=== PATIENT | male | born 1980 | race African-American/Black ===

== ENCOUNTER 2017-10-14 17:38 | Emergency (ER) | payer SELFPAY ==
[~2017-10-14] VITALS: Ht 184.2 cm; Wt 76.4 kg
[2017-10-14] MEDS ORDERED: CLON.3 PO (18:02)
[2017-10-14] MEDS ORDERED: OMEP20 PO (18:02)
[2017-10-14] MEDS: IBUPROFEN 800 MG TABLET PO ONE ×2 (19:14→19:19)
[2017-10-14 19:55] VITALS: BP 130/88
== END 2017-10-14 20:03 | disposition home or self-care (01) ==
LOC: EMS 17:40
DX: S60.012A Contusion of left thumb without damage to nail, initial encounter (principal); B35.1 Tinea unguium; I10 Essential (primary) hypertension; F17.210 Nicotine dependence, cigarettes, uncomplicated; W21.05XA Struck by basketball, initial encounter; Y93.89 Activity, other specified; Y92.89 Other specified places as the place of occurrence of the external cause; Y99.8 Other external cause status
CPT/HCPCS: 99284

== ENCOUNTER 2020-10-30 00:06 | Inpatient (IN) | payer MEDICAID ==
[~2020-10-30] VITALS: Ht 182.9 cm; Wt 64.6 kg
[~2020-10-30 00:06] MED LIST: CLON0.3T PO; OMEP20 PO
[2020-10-30 01:38] LABS: BASOPHILS % (AUTO) 0.8 % (0.0-2.0); HEMATOCRIT 45.8 % (41-53); HEMOGLOBIN 15.2 g/dL (13.5-17.5); LYMPHOCYTES # (AUTO) 1.8 K/uL (1.0-4.8); LYMPHOCYTES % (AUTO) 19.9 % (22.0-44.0); MEAN CORPUSCULAR HGB CONC 33.2 G/dL (31.0-37.0); MEAN CORPUSCULAR VOLUME 90 fL (80-100); MONOCYTES # (AUTO) 0.6 K/uL (0.1-1.0); MONOCYTES % (AUTO) 6.7 % (2.0-9.0); NEUTROPHILS # (AUTO) 6.3 K/uL (1.8-7.7); NEUTROPHILS % (AUTO) 71.6 % (40.0-70.0); PLATELET COUNT (AUTO) 285 K/uL (150-450); RED BLOOD CELL COUNT(AUTO) 5.06 MIL/uL (4.50-5.90); RED CELL DISTRIBUTION WIDTH 13.1 % (11.5-14.5)
[2020-10-30 01:48] LABS: ANION GAP 6 mmol/L (8-16); CALCIUM, TOTAL 8.9 mg/dL (8.8-10.5); CARBON DIOXIDE 32 mmol/L (22-29); CHLORIDE 103 mmol/L (98-107); CREATININE 1.03 mg/dL (0.60-1.30); GLOMERULAR FILTR. RATE CALC > 60 mL/min (>60); GLUCOSE,RANDOM 87 mg/dL (70-110); POTASSIUM 4.1 mmol/L (3.5-5.1); SODIUM SERUM 141 mmol/L (136-145); UREA NITROGEN, BLOOD 15 mg/dL (7-18)
[2020-10-30 01:54] LABS: ALANINE AMINOTRANSFERASE 34 U/L (12-78); ALBUMIN 4.1 g/dL (3.4-5.0); ALKALINE PHOSPHATASE 143 U/L (46-116); ASPARTATE AMINOTRANSFERASE 21 U/L (15-37); BILIRUBIN,TOTAL 0.2 mg/dL (0.1-1.0); TOTAL PROTEIN, SERUM 7.8 g/dL (6.4-8.2)
[2020-10-30] MEDS ORDERED: ZOLPIDEM TARTRATE 10 MG TABLET PO PRN (03:00)
[2020-10-30] MEDS ORDERED: LORazepam 2 MG TABLET PO PRN (03:00)
[2020-10-30] MEDS ORDERED: QUEtiapine FUMARATE 100 MG TABLET PO PRN (03:00)
[2020-10-30 03:05] LABS: COVID AG,FIA SOURCE NASOPHARYNGEAL
[2020-10-30 03:19] LABS: APPEARANCE,URINE CLEAR (CLEAR); BILIRUBIN,URINE NEGATIVE (NEGATIVE); GLUCOSE, URINE (UA) NEGATIVE (NEGATIVE); KETONES,URINE NEGATIVE (NEGATIVE); LEUKOCYTE ESTERASE ,URINE NEGATIVE (NEGATIVE); NITRATE,URINE NEGATIVE (NEGATIVE); OCCULT BLOOD,URINE NEGATIVE (NEGATIVE); PH,URINE 5.5 (5.0-8.0); PROTEIN,URINE NEGATIVE (NEGATIVE); UROBILINOGEN,URINE 0.2 mg/dL (<=1.0)
[2020-10-30 03:32] LABS: AMPHET/METH SCREEN,URINE NEGATIVE (NEGATIVE); BARBITURATE SCREEN, URINE NEGATIVE (NEGATIVE); BENZODIAZEPINES SCREEN,URINE NEGATIVE (NEGATIVE); CANNABINOID SCREEN,URINE POSITIVE (NEGATIVE); COCAINE SCREEN,URINE POSITIVE (NEGATIVE); METHADONE SCREEN, URINE NEGATIVE (NEGATIVE); OPIATE SCREEN,URINE NEGATIVE (NEGATIVE)
[2020-10-30 03:46] LABS: PHENCYCLIDINE SCREEN,URINE NEGATIVE (NEGATIVE)
[2020-10-30] MEDS ORDERED: ACETAMINOPHEN 325 MG TABLET PO PRN (08:45)
[2020-10-30] MEDS ORDERED: LOPERAMIDE HCL 2 MG CAPSULE PO PRN (08:45)
[2020-10-30] MEDS ORDERED: ALBUTEROL SULFATE HFA 90 MCG/PUFF 8 GM INHALER IH PRN (08:45)
[2020-10-30] MEDS ORDERED: DOCUSATE SODIUM 100 MG CAPSULE PO PRN (08:45)
[2020-10-30] MEDS ORDERED: IBUPROFEN 400 MG TABLET PO PRN (08:45)
[2020-10-30] MEDS ORDERED: ONDANSETRON HCL 4 MG TABLET PO PRN (08:45)
[2020-10-30] MEDS ORDERED: GuaiFENesin/D-METHORPHAN [SUGAR-FREE] 200-20MG/10 ML SYRUP UDCUP PO PRN (08:45)
[2020-10-30] MEDS ORDERED: CloNIDine HCL 0.1 MG TABLET PO PRN (08:45)
[2020-10-30] MEDS ORDERED: PETROLATUM,WHITE 28 GM JELLY TP PRN (08:45)
[2020-10-30] MEDS ORDERED: MAGNESIUM HYDROXIDE SUSPENSION 30 ML UDCUP PO PRN (08:45)
[2020-10-30] MEDS ORDERED: MAG HYDROX/AL HYDROX/SIMETH ES 30 ML SUSPENSION UDCUP PO PRN (08:45)
[2020-10-30] MEDS: OMEPRAZOLE 20 MG CAPSULE PO SCH (09:49)
[2020-10-30 09:54] VITALS: BP 155/108
[2020-10-30] MEDS: AmLODIPine BESYLATE 5 MG TABLET PO SCH (10:30)
[2020-10-30 17:19] VITALS: BP 124/81
[2020-10-30] MEDS: NICOTINE 14 MG/24 HOUR PATCH TD PRN (17:40)
[2020-10-30] MEDS: QUEtiapine FUMARATE 100 MG TABLET PO SCH (20:32)
[2020-10-31 07:08] LABS: CHOL/HDL RATIO 2.1 (4.2-7.3)
[2020-10-31 08:00] VITALS: BP 132/88
[2020-10-31] MEDS: AmLODIPine BESYLATE 5 MG TABLET PO SCH (08:16)
[2020-10-31] MEDS: OMEPRAZOLE 20 MG CAPSULE PO SCH (08:19)
[2020-10-31 16:13] VITALS: BP 103/69
[2020-10-31] MEDS: NICOTINE 14 MG/24 HOUR PATCH TD PRN (18:57)
[2020-10-31] MEDS: QUEtiapine FUMARATE 100 MG TABLET PO SCH (21:01)
[2020-11-01] MEDS: AmLODIPine BESYLATE 5 MG TABLET PO SCH (08:13)
[2020-11-01] MEDS: OMEPRAZOLE 20 MG CAPSULE PO SCH (08:13)
[2020-11-01] MEDS: NICOTINE 14 MG/24 HOUR PATCH TD PRN (08:19)
[2020-11-01 08:22] VITALS: BP 128/92
[2020-11-01] MEDS ORDERED: QUET100T33 PO (11:52)
[2020-11-01] MEDS ORDERED: AMLO-257 PO (13:20)
== END 2020-11-01 16:45 | disposition home or self-care (01) | DRG 750 ==
LOC: EMS 00:13 → 3EI 02:46
DX: F20.0 Paranoid schizophrenia (principal); R45.851 Suicidal ideations; R45.850 Homicidal ideations; I10 Essential (primary) hypertension; K21.9 Gastro-esophageal reflux disease without esophagitis; Z20.822 Contact with and (suspected) exposure to COVID-19; F14.10 Cocaine abuse, uncomplicated; F12.10 Cannabis abuse, uncomplicated; Z79.899 Other long term (current) drug therapy; Z87.891 Personal history of nicotine dependence
CPT/HCPCS: 80053; 80061; 81003; 85025; 99285; G0480

== ENCOUNTER 2021-01-13 12:12 | Emergency (ER) | payer MEDICAID ==
[~2021-01-13] VITALS: Ht 185.4 cm; Wt 63.0 kg
[~2021-01-13 12:12] MED LIST changes: +AMLO-257 PO; +QUET100T34 PO
[2021-01-13 13:56] LABS: APPEARANCE,URINE CLEAR (CLEAR); BILIRUBIN,URINE NEGATIVE (NEGATIVE); GLUCOSE, URINE (UA) >=1000 mg/dL (NEGATIVE); KETONES,URINE NEGATIVE (NEGATIVE); LEUKOCYTE ESTERASE ,URINE NEGATIVE (NEGATIVE); NITRATE,URINE NEGATIVE (NEGATIVE); OCCULT BLOOD,URINE NEGATIVE (NEGATIVE); PH,URINE 5.5 (5.0-8.0); PROTEIN,URINE NEGATIVE (NEGATIVE); UROBILINOGEN,URINE 0.2 mg/dL (<=1.0)
[2021-01-13 14:02] LABS: AMPHET/METH SCREEN,URINE NEGATIVE (NEGATIVE); BARBITURATE SCREEN, URINE NEGATIVE (NEGATIVE); BENZODIAZEPINES SCREEN,URINE NEGATIVE (NEGATIVE); CANNABINOID SCREEN,URINE POSITIVE (NEGATIVE); COCAINE SCREEN,URINE NEGATIVE (NEGATIVE); METHADONE SCREEN, URINE NEGATIVE (NEGATIVE); OPIATE SCREEN,URINE NEGATIVE (NEGATIVE)
[2021-01-13 14:05] LABS: PHENCYCLIDINE SCREEN,URINE NEGATIVE (NEGATIVE)
[2021-01-13 14:13] LABS: BASOPHILS % (AUTO) 0.4 % (0.0-2.0); EOSINOPHILS % (AUTO) 0.1 % (1.0-6.0); HEMATOCRIT 45.9 % (41-53); HEMOGLOBIN 15.3 g/dL (13.5-17.5); LYMPHOCYTES % (AUTO) 7.9 % (22.0-44.0); MEAN CORPUSCULAR HEMOGLOBIN 29.9 pg (26.0-34.0); MEAN CORPUSCULAR HGB CONC 33.2 G/dL (31.0-37.0); MEAN CORPUSCULAR VOLUME 90 fL (80-100); MONOCYTES # (AUTO) 0.6 K/uL (0.1-1.0); MONOCYTES % (AUTO) 4.8 % (2.0-9.0); NEUTROPHILS # (AUTO) 10.5 K/uL (1.8-7.7); PLATELET COUNT (AUTO) 294 K/uL (150-450); RED CELL DISTRIBUTION WIDTH 13.1 % (11.5-14.5)
[2021-01-13 14:16] LABS: NEUTROPHILS % (AUTO) 86.8 % (40.0-70.0)
[2021-01-13 14:27] LABS: ANION GAP 10 mmol/L (8-16); CALCIUM, TOTAL 9.3 mg/dL (8.8-10.5); CARBON DIOXIDE 29 mmol/L (22-29); CHLORIDE 100 mmol/L (98-107); CREATININE 0.92 mg/dL (0.60-1.30); GLOMERULAR FILTR. RATE CALC > 60 mL/min (>60); GLUCOSE,RANDOM 102 mg/dL (70-110); POTASSIUM 3.7 mmol/L (3.5-5.1); SODIUM SERUM 139 mmol/L (136-145); UREA NITROGEN, BLOOD 11 mg/dL (7-18)
[2021-01-13 14:29] LABS: BACTERIA,URINE None Seen /HPF (None Seen); RBC,URINE None Seen /HPF (0-2)
[2021-01-13 14:30] LABS: WBC,URINE 0-2 /HPF (0-5)
[2021-01-13 14:33] LABS: ALANINE AMINOTRANSFERASE 40 U/L (12-78); ALBUMIN 4.3 g/dL (3.4-5.0); ALKALINE PHOSPHATASE 109 U/L (46-116); ASPARTATE AMINOTRANSFERASE 29 U/L (15-37); BILIRUBIN,TOTAL 0.4 mg/dL (0.1-1.0); TOTAL PROTEIN, SERUM 8.4 g/dL (6.4-8.2)
[2021-01-13] MEDS ORDERED: LORazepam 1 MG TABLET PO ONE (15:00)
[2021-01-13] MEDS ORDERED: ONDANSETRON HCL 4 MG TABLET PO ONE (15:00)
[2021-01-13 15:37] VITALS: BP 137/88
== END 2021-01-13 15:57 | disposition home or self-care (01) ==
LOC: EMS 12:14
DX: F11.23 Opioid dependence with withdrawal (principal); F17.210 Nicotine dependence, cigarettes, uncomplicated; I10 Essential (primary) hypertension; Z79.899 Other long term (current) drug therapy
CPT/HCPCS: 36415; 80053; 80307; 81001; 81003; 85025; 99283; G0480; Q0162; 99284

== ENCOUNTER 2022-06-05 23:28 | Emergency (ER) | payer MEDICAID ==
[~2022-06-05] VITALS: Ht 185.4 cm; Wt 72.7 kg
[2022-06-06 00:09] LABS: BASOPHILS % (AUTO) 0.4 % (0.0-2.0); EOSINOPHILS % (AUTO) 0.3 % (1.0-6.0); HEMATOCRIT 46.4 % (41-53); HEMOGLOBIN 15.7 g/dL (13.5-17.5); LYMPHOCYTES % (AUTO) 21.6 % (22.0-44.0); MEAN CORPUSCULAR HEMOGLOBIN 30.3 pg (26.0-34.0); MEAN CORPUSCULAR HGB CONC 33.8 G/dL (31.0-37.0); MEAN CORPUSCULAR VOLUME 90 fL (80-100); MONOCYTES # (AUTO) 0.4 K/uL (0.1-1.0); MONOCYTES % (AUTO) 4.1 % (2.0-9.0); NEUTROPHILS # (AUTO) 6.9 K/uL (1.8-7.7); NEUTROPHILS % (AUTO) 73.6 % (40.0-70.0); PLATELET COUNT (AUTO) 281 K/uL (150-450); RED BLOOD CELL COUNT(AUTO) 5.18 MIL/uL (4.50-5.90); RED CELL DISTRIBUTION WIDTH 13.1 % (11.5-14.5)
[2022-06-06 00:22] LABS: ANION GAP 5 mmol/L (8-16); CALCIUM, TOTAL 9.1 mg/dL (8.8-10.5); CARBON DIOXIDE 32 mmol/L (22-29); CHLORIDE 103 mmol/L (98-107); CREATININE 1.13 mg/dL (0.60-1.30); GLOMERULAR FILTR. RATE CALC > 60 mL/min (>60); GLUCOSE,RANDOM 104 mg/dL (70-110); POTASSIUM 4.3 mmol/L (3.5-5.1); SODIUM SERUM 140 mmol/L (136-145); UREA NITROGEN, BLOOD 12 mg/dL (7-18)
[2022-06-06 00:27] LABS: ALANINE AMINOTRANSFERASE 23 U/L (12-78); ALBUMIN 4.4 g/dL (3.4-5.0); ALKALINE PHOSPHATASE 108 U/L (46-116); ASPARTATE AMINOTRANSFERASE 19 U/L (15-37); BILIRUBIN,TOTAL 0.3 mg/dL (0.1-1.0); TOTAL PROTEIN, SERUM 8.2 g/dL (6.4-8.2)
[2022-06-06 01:34] LABS: AMPHET/METH SCREEN,URINE NEGATIVE (NEGATIVE); BARBITURATE SCREEN, URINE NEGATIVE (NEGATIVE); BENZODIAZEPINES SCREEN,URINE NEGATIVE (NEGATIVE); CANNABINOID SCREEN,URINE NEGATIVE (NEGATIVE); COCAINE SCREEN,URINE NEGATIVE (NEGATIVE); METHADONE SCREEN, URINE NEGATIVE (NEGATIVE); OPIATE SCREEN,URINE NEGATIVE (NEGATIVE); PHENCYCLIDINE SCREEN,URINE NEGATIVE (NEGATIVE)
[2022-06-06 03:37] LABS: COVID AG,FIA SOURCE NASAL SWAB
[2022-06-06] MEDS ORDERED: OLANZapine 5 MG RAPDIS TABLET PO PRN (03:45)
[2022-06-06] MEDS ORDERED: OLANZapine 5 MG RAPDIS TABLET PO ONE (03:45)
[2022-06-06] MEDS ORDERED: ZOLPIDEM TARTRATE 10 MG TABLET PO PRN (03:45)
[2022-06-06] MEDS ORDERED: LORazepam 2 MG TABLET PO PRN (03:45)
[2022-06-06 07:41] VITALS: BP 134/74
== END 2022-06-06 09:14 | disposition home or self-care (01) ==
LOC: EMS 23:28 → B3A 06-06 03:00 → UNDOADMIN 06-06 03:00 → EMS 06-06 09:14
DX: F25.1 Schizoaffective disorder, depressive type (principal); I10 Essential (primary) hypertension; F17.210 Nicotine dependence, cigarettes, uncomplicated; Z98.890 Other specified postprocedural states; Z20.822 Contact with and (suspected) exposure to COVID-19
CPT/HCPCS: 99285; 87426; 80053; 85025; 36415; 80307 ×2; G0480

== ENCOUNTER 2022-11-22 18:23 | Emergency (ER) | payer MEDICAID ==
[~2022-11-22] VITALS: Ht 182.9 cm; Wt 76.4 kg
[2022-11-22 18:26] VITALS: BP 127/66; PULSE 86; RESP 18; TEMP 98.5
[2022-11-23 00:47] LABS: AMPHET/METH SCREEN,URINE NEGATIVE (NEGATIVE); BARBITURATE SCREEN, URINE NEGATIVE (NEGATIVE); BENZODIAZEPINES SCREEN,URINE NEGATIVE (NEGATIVE); CANNABINOID SCREEN,URINE POSITIVE (NEGATIVE); COCAINE SCREEN,URINE NEGATIVE (NEGATIVE); METHADONE SCREEN, URINE NEGATIVE (NEGATIVE); OPIATE SCREEN,URINE NEGATIVE (NEGATIVE); PHENCYCLIDINE SCREEN,URINE NEGATIVE (NEGATIVE)
[2022-11-23] MEDS ORDERED: OLANZapine 5 MG TABLET PO ONE (02:00)
== END 2022-11-23 02:55 | disposition home or self-care (01) ==
LOC: EMS 18:34
DX: R44.0 Auditory hallucinations (principal); I10 Essential (primary) hypertension; F17.210 Nicotine dependence, cigarettes, uncomplicated; Z98.890 Other specified postprocedural states
CPT/HCPCS: 80307; 99284